=== PATIENT | female | born 2000 | race Caucasian/White ===

== ENCOUNTER 2018-01-09 15:42 | Outpatient (CLI) | payer OTHER | END 2018-01-09 15:43 | disposition home or self-care (01) | LOC: BICMRI 15:42 | PROVIDERS: ATTEND Physician Assistant | DX: S93.492D Sprain of other ligament of left ankle, subsequent encounter (principal) ==

== ENCOUNTER 2019-09-16 00:19 | Emergency (ER) | payer OTHER ==
[2019-09-16] MEDS ORDERED: Dexamethasone 10 MG/ML VIAL ONE (00:51)
== END 2019-09-16 00:55 | disposition home or self-care (01) ==
LOC: ERS 00:19
DX: J02.9 Acute pharyngitis, unspecified (principal); F41.9 Anxiety disorder, unspecified; F32.9 Major depressive disorder, single episode, unspecified; F17.210 Nicotine dependence, cigarettes, uncomplicated
CPT/HCPCS: 99283; J1100